=== PATIENT | male | born 1930 | race Caucasian/White ===

== ENCOUNTER 2016-08-15 11:35 | Outpatient (CLI) | payer MEDICARE, OTHER | END 2016-08-15 11:36 | disposition home or self-care (01) | DX: Z01.818 Encounter for other preprocedural examination (principal); N39.0 Urinary tract infection, site not specified; R79.89 Other specified abnormal findings of blood chemistry; Z01.812 Encounter for preprocedural laboratory examination ==

== ENCOUNTER 2016-12-05 07:47 | Day surgery (SDC) | payer MEDICARE, OTHER ==
[2016-12-05] MEDS ORDERED: LACTATED RINGERS 1,000 ML IV ONE (08:04)
[2016-12-05] MEDS ORDERED: TROPICAMIDE 1% OPHTH 2 ML DROPS OPTH ONE (08:10)
[2016-12-05] MEDS ORDERED: CYCLOPENTOLATE 1% OPHTH DROPS 2 ML OPTH ONE ×2 (08:10→08:15)
[2016-12-05] MEDS ORDERED: KETOROLAC 0.45% OPHTH DROPS OPTH ONE ×2 (08:10→08:20)
[2016-12-05] MEDS ORDERED: BSS/LIDOCAINE/EPINEPHRINE 1 ML SYRINGE IO ONE (09:32)
[2016-12-05] MEDS ORDERED: CHONDR SULF/HYALURONATE SYRINGE IO ONE (09:32)
[2016-12-05] MEDS ORDERED: levoFLOXacin 0.5% OPHTH DROPS 5 ML OPTH ONE (09:32)
[2016-12-05] MEDS ORDERED: NEOMYCIN/POLYMYX/DEXAMETH OPHTH OINT OPTH ONE (09:32)
[2016-12-05] MEDS ORDERED: PROPARACAINE 0.5% OPHTH DROPS 15 ML OPTH ONE (09:32)
[2016-12-05] MEDS ORDERED: EPINEPHrine 1 MG/ML AMP IO ONE (09:32)
[2016-12-05] MEDS ORDERED: BRIMONIDINE 0.2% OPHTH DROPS 5 ML OPTH ONE (09:32)
[2016-12-05] MEDS ORDERED: TETRACAINE 0.5% OPHTH DROPS 4 ML LEFTEYE ONE (09:32)
[2016-12-05] MEDS ORDERED: PROPOFOL 200 MG/20 ML VIAL IVP ONE (09:35)
[2016-12-05] MEDS ORDERED: LIDOCAINE-MPF 2% 5 ML VIAL IM ONE (09:35)
[2016-12-05] MEDS ORDERED: MIDAZOLAM 2 MG/2 ML VIAL IVP ONE (09:35)
--- NOTE | 2016-12-05 10:45 | OPERATIVE REPORT ---
DATE OF SURGERY: 12/05/2016 00:00:00 PREOPERATIVE DIAGNOSIS: Visually impairing cataract, left eye. POSTOPERATIVE DIAGNOSIS: Visually impairing cataract, left eye. NAME OF PROCEDURE: Complex cataract extraction with intraocular lens implant of the left eye. SURGEON: Derik Rodgers MD ANESTHESIA: Topical 0.5% tetracaine with monitored sedation and intracameral Shugarcaine given at the beginning of the surgical procedure. COMPLICATIONS: None. DESCRIPTION OF SURGICAL PROCEDURE: The patient was brought into the OR and, after IV and cardiac lead s were placed, the patient was prepped and draped in the usual ophthalmic manner. An adhesive plastic drape was placed over the eye, a slit was made in the drape, and topical anesthetic was placed on th e eye. A lid speculum was used to separate the eyelids and expose the eye. A 15-degree blade was then used to make a self-sealing stab wound 2 o'clock hours to the left of the planned clear corneal inci [place], and intracameral Shugarcaine was administered with minimal aid in dilation. The patient had a h istory of previously being on Flomax. More time was waited to see if there would be a response to the intracameral Shugarcaine and there was not. Viscoelastic was placed in the eye. A crescent blade was used to make the initial vertical component of the self-sealing tunnel, and then a 2.75 keratome was used to complete the incision. The Malyugin ring was then inserted for pupillary expansion and stabi lity. A circular tear capsulorrhexis was performed. The nucleus was hydrodissected, and phacoemulsifi cation of the cataract was performed without complication. The I/A unit was used to remove the cortic al material from the eye. Viscoelastic was then placed in the capsular bag. The intraocular lens was then inserted into the capsular bag and with the haptics left at about the 3 o'clock and 9 o'clock po sitions. There was some residual subincisional cortex, this was extracted with the J cannula and then more Viscoelastic was placed in the eye. The Malyugin ring was released from the iris, and then was extracted from the eye. The I/A unit was used to remove Viscoelastic and BSS was used to fill the ant erior chamber. The wounds were found to be self-sealing and water tight. The lid speculum was removed . Several drops of Quixin were placed on the eye. A drop of brimonidine was placed on the eye. Maxitr ol ointment was placed on the eye. The eye was patched and shielded, and the patient was taken to the recovery room in good condition. JOB #: [id number] EXT JOB #:[id number]
[2016-12-05 11:35] VITALS: BP 119/79
== END 2016-12-05 07:48 | disposition home or self-care (01) ==
LOC: SDS 07:47
PROVIDERS: ATTEND Specialist
PROC: 08RK3JZ Replacement of Left Lens with Synthetic Substitute, Percutaneous Approach (ICD-10-PCS; principal; 2016-12-05 09:00)
DX: H25.12 Age-related nuclear cataract, left eye (principal); I10 Essential (primary) hypertension; I48.91 Unspecified atrial fibrillation; N40.0 Benign prostatic hyperplasia without lower urinary tract symptoms; H21.81 Floppy iris syndrome
CPT/HCPCS: 66982; J7120; V2632

== ENCOUNTER 2017-08-24 09:03 | Emergency (ER) | payer MEDICARE, OTHER ==
--- NOTE | 2017-08-24 09:47 | ED Physician Documentation ---
PD HPI TRUNK INJURY - Stated complaint Stated Complaint: L SIDE RIB PAIN - Chief complaint Chief Complaint: Trauma Ch/Bk - History obtained from History obtained from: Patient - History of Present Illness Location: Left chest Type of injury: Fall (he says tripped on rug and fell to left side.) Timing - onset: Last night Timing - details: Abrupt onset Improved by: Rest Worsened by: Moving, Other (deep breathing) Associated symtptoms: No: Weakness, Numbness Contributing factors: Anticoagulated (though was of COumadin recently for back injection and just resumed it a few days ago.). No: Other injury Where injury occured: Home Similar symptoms before: Has not had sx before Recently seen: Not recently seen Review of Systems Constitutional: denies: Fever, Chills Nose: denies: Rhinorrhea / runny nose, Congestion Throat: reports: Sore throat Respiratory: denies: Cough GI: denies: Abdominal Pain, Nausea, Vomiting Musculoskeletal: reports: Back pain (chronic). denies: Neck pain Neurologic: denies: Altered mental status, Headache, Head injury PD PAST MEDICAL HISTORY - Past Medical History Cardiovascular: Hypertension, High cholesterol, Atrial fibrillation Respiratory: None Neuro: None Endocrine/Autoimmune: None GI: GERD, Colon polyps : Benign prostate hypertrophy HEENT: None Psych: Depression Musculoskeletal: Osteoarthritis, Chronic back pain, Other Derm: None - Past Surgical History Past Surgical History: Yes General: Colonoscopy Ortho: Hip replacement, Arthroscopic surgery HEENT: Tonsil/Adenoidectomy - Present Medications Home Medications: Ambulatory Orders Medication Instructions Recorded Confirmed Amlodipine Besylate [Norvasc] 10 mg PO DAILY 03/10/15 08/24/17 Gluc HCl/Csa/Collagen/Hyalur A 1 each PO DAILY 03/10/15 08/24/17 [Glucosamine Chondroitin Cap] Losartan Potassium 100 mg PO DAILY 03/10/15 08/24/17 Simvastatin 20 mg PO QPM 03/10/15 08/24/17 Warfarin Sodium 5 mg PO DAILY 03/10/15 08/24/17 Oxycodone HCl/Acetaminophen 1 each PO Q6H PRN #20 tablet 08/24/17 [Percocet 5-325 mg Tablet] - Allergies Allergies/Adverse Reactions: Allergies Allergy/AdvReac Type Severity Reaction Status Date / Time cefuroxime axetil * Allergy Severe Hives Verified 02/10/18 09:21 [From Ceftin] - Social History Does the pt smoke?: No Smoking Status: Former smoker Does the pt drink ETOH?: Yes Does the pt have substance abuse?: No - Immunizations Immunizations are current?: Yes - POLST Patient has POLST: Yes PD ED PE NORMAL - Vitals Vital signs reviewed: Yes - General General: Alert and oriented X 3, Well developed/nourished - HEENT HEENT: Atraumatic, Pharynx benign - Neck Neck: Supple, no meningeal sign, No bony TTP, No adenopathy - Cardiac Cardiac: RRR, No murmur - Respiratory Respiratory: No respiratory distress, Clear bilaterally, Other (left chest tenderness without crepitance nor deformity. ) - Abdomen Abdomen: Soft, Non tender - Back Back: No CVA TTP - Derm Derm: Normal color, Warm and dry - Extremities Extremities: No tenderness to palpate, Normal ROM s pain - Neuro Neuro: Alert and oriented X 3, No motor deficit, Normal speech - Psych Psych: Normal mood, Normal affect Results - Vitals Vitals: Oxygen O2 Source Room air - Labs Labs: Laboratory Tests 08/24/17 10:13 Whole Blood INR 1.1 - Rads (name of study) chest CT Radiology: Prelim report reviewed (no fractures nor lung injury) PD MEDICAL DECISION MAKING - ED course Complexity details: reviewed results, considered differential, d/w patient, d/w family () Departure - Departure Disposition: 01 Home, Self Care Clinical Impression: Chest wall contusion Qualifiers: Encounter type: initial encounter Laterality: left Qualified Code(s): S20.212A - Contusion of left front wall of thorax, initial encounter Fall from slip, trip, or stumble Qualifiers: Encounter type: initial encounter Qualified Code(s): W01.0XXA - Fall on same level from slipping, tripping and stumbling without subsequent striking against object, initial encounter Clinical Impression: (Ruled Out): Fracture of rib Condition: Stable Record reviewed to determine appropriate education?: Yes Instructions: ED Contusion Chest Wall Follow-Up: Felix Hernandez MD [Primary Care Provider] - Prescriptions: Oxycodone HCl/Acetaminophen [Percocet 5-325 mg Tablet] 1 each PO Q6H PRN #20 tablet PRN Reason: Pain Comments: There are no signs of internal injury to the lung and no rib fracture seen on CT scan. Presume just bruising to the ribs and chest wall. Continue usual medications. Use Tylenol 500 mg 4 times a day for pain. Add Percocet if needed for worse pain. Recheck if not better over the next week. Discharge Date/Time: 08/24/17 13:04
[2017-08-24] MEDS ORDERED: oxyCOD/ACETAMIN 5 MG/325 MG TABLET PO STA (10:02)
--- NOTE | 2017-08-24 11:59 | CT Preliminary Report ---
Exam: CT CHEST W/O IMPRESSION: 1. No fracture identified. 2. No focal consolidation or pleural effusion. 3. Cardiomegaly with severe coronary artery disease. 4. Cholelithiasis. [facility] SITE ID: [id number]
--- NOTE | 2017-08-24 11:59 | CT Report ---
EXAM: CT CHEST EXAM DATE: 08/24/2017 11:21 AM. CLINICAL HISTORY: Fell last night; left rib/chest pain today. COMPARISONS: None. TECHNIQUE: Routine helical CT imaging was performed through the chest. IV contrast: None. Reconstruct ions: Coronal and sagittal. In accordance with CT protocol optimization, one or more of the following dose reduction techniques w ere utilized for this exam: automated exposure control, adjustment of mA and/or KV based on patient s ize, or use of iterative reconstructive technique. FINDINGS: Lungs/Pleura: No nodules, bronchial thickening, consolidation, or edema. Pulmonary vasculature is nor mal. No pericardial or pleural effusion. No pneumothorax. Mediastinum: Severe coronary artery calcifications. No lymphadenopathy. The heart is enlarged. Bones: No fracture identified. Visualized Abdomen: 2 small calcified stones in the fundus of the gallbladder with no pericholecystic fluid. Other: None. IMPRESSION: 1. No fracture identified. 2. No focal consolidation or pleural effusion. 3. Cardiomegaly with severe coronary artery disease. 4. Cholelithiasis. [facility] Referring Provider Line: [phone] SITE ID: [id number]
[2017-08-24] MEDS ORDERED: WARFARIN 5 MG TABLET PO STA (12:32)
[2017-08-24 12:44] VITALS: BP 134/86
== END 2017-08-24 13:04 | disposition home or self-care (01) ==
LOC: ED 09:03
DX: S20.212A Contusion of left front wall of thorax, initial encounter (principal); W01.0XXA Fall on same level from slipping, tripping and stumbling without subsequent striking against object, initial encounter; Y92.019 Unspecified place in single-family (private) house as the place of occurrence of the external cause; I48.91 Unspecified atrial fibrillation; Z79.01 Long term (current) use of anticoagulants; I10 Essential (primary) hypertension; E78.00 Pure hypercholesterolemia, unspecified; K21.9 Gastro-esophageal reflux disease without esophagitis; N40.0 Benign prostatic hyperplasia without lower urinary tract symptoms; M19.90 Unspecified osteoarthritis, unspecified site; Z86.010 Personal history of colon polyps; Z87.891 Personal history of nicotine dependence
CPT/HCPCS: 71250; 85610; 93005; 99283; 99284; A9270

== ENCOUNTER 2017-10-14 08:30 | Outpatient (CLI) | payer MEDICARE, OTHER ==
[2017-10-14 12:31] LABS: BASOPHILS % (AUTO) 0.5 %; EOSINOPHILS # (AUTO) 0.1 10^3/uL (0.0-0.7); EOSINOPHILS % (AUTO) 2.1 %; HGB - HEMOGLOBIN 14.6 g/dL (14.0-18.0); LYMPHOCYTES # (AUTO) 0.9 10^3/uL (1.5-3.5); LYMPHOCYTES % (AUTO) 19.5 %; MEAN CORPUSCULAR HEMOGLOBIN 31.2 pg (27.0-31.0); MEAN CORPUSCULAR HGB CONC 33.1 g/dL (32.0-36.0); MEAN CORPUSCULAR VOLUME 94.2 fL (80.0-94.0); MEAN PLATELET VOLUME 7.3 fL (7.4-11.4); MONOCYTES # (AUTO) 0.6 10^3/uL (0.0-1.0); NEUTROPHILS # (AUTO) 3.1 10^3/uL (1.5-6.6); NEUTROPHILS % (AUTO) 65.9 %; PLT - PLATELET COUNT 258 10^3/uL (130-450); RED BLOOD COUNT 4.68 10^6/uL (4.70-6.10); RED CELL DISTRIBUTION WIDTH 14.7 % (12.0-15.0); WHITE BLOOD COUNT 4.7 x10^3/uL (4.8-10.8)
[2017-10-14 12:50] LABS: ALBUMIN/GLOBULIN RATIO 1.6 (1.0-2.2); ALKALINE PHOSPHATASE 73 IU/L (42-121); ALT ALANINE AMINOTRANSFERASE 25 IU/L (10-60); AST ASPARTATE AMINOTRANSFERASE 28 IU/L (10-42); BILIRUBIN,TOTAL 0.8 mg/dL (0.2-1.0); BUN - BLOOD UREA NITROGEN 28 mg/dL (6-20); CALCIUM 9.1 mg/dL (8.5-10.3); CARBON DIOXIDE - CO2 26 mmol/L (21-32); CHLORIDE 106 mmol/L (101-111); CHOL/HDL RATIO 3.4 (<5.0); CHOLESTEROL 153 mg/dL; GFR - MDRD 71 (>89); GLUCOSE 103 mg/dL (70-100); HDL CHOLESTEROL 45 mg/dL; LDL CHOLESTEROL,CALCULATED 92 mg/dL; SODIUM 138 mmol/L (135-145); TOTAL PROTEIN 6.5 g/dL (6.7-8.2); VLDL CHOLESTEROL 16 mg/dL
== END 2017-10-14 08:31 | disposition home or self-care (01) ==
LOC: LAB.WCP 08:30
PROVIDERS: ATTEND Family Medicine
DX: I10 Essential (primary) hypertension (principal); I48.91 Unspecified atrial fibrillation; E78.5 Hyperlipidemia, unspecified
CPT/HCPCS: 36415; 80053; 80061; 84443; 85025; G0103; 83721; 84153

== ENCOUNTER 2018-07-14 14:50 | Outpatient (CLI) | payer MEDICARE, OTHER ==
[2018-07-14 18:55] LABS: BASOPHILS % (AUTO) 0.5 %; EOSINOPHILS # (AUTO) 0.2 10^3/uL (0.0-0.7); EOSINOPHILS % (AUTO) 2.4 %; HGB - HEMOGLOBIN 13.2 g/dL (14.0-18.0); LYMPHOCYTES # (AUTO) 0.7 10^3/uL (1.5-3.5); LYMPHOCYTES % (AUTO) 9.6 %; MEAN CORPUSCULAR HEMOGLOBIN 30.8 pg (27.0-31.0); MEAN CORPUSCULAR HGB CONC 32.5 g/dL (32.0-36.0); MEAN CORPUSCULAR VOLUME 94.6 fL (80.0-94.0); MEAN PLATELET VOLUME 7.1 fL (7.4-11.4); MONOCYTES # (AUTO) 0.7 10^3/uL (0.0-1.0); MONOCYTES % (AUTO) 9.6 %; NEUTROPHILS # (AUTO) 5.6 10^3/uL (1.5-6.6); NEUTROPHILS % (AUTO) 77.9 %; PLT - PLATELET COUNT 373 10^3/uL (130-450); RED BLOOD COUNT 4.29 10^6/uL (4.70-6.10); RED CELL DISTRIBUTION WIDTH 15.1 % (12.0-15.0); WHITE BLOOD COUNT 7.2 x10^3/uL (4.8-10.8)
[2018-07-14 19:06] LABS: ALBUMIN 3.3 g/dL (3.2-5.5); ALBUMIN/GLOBULIN RATIO 1.1 (1.0-2.2); ALKALINE PHOSPHATASE 112 IU/L (42-121); ALT ALANINE AMINOTRANSFERASE 15 IU/L (10-60); AST ASPARTATE AMINOTRANSFERASE 23 IU/L (10-42); BILIRUBIN,TOTAL 0.3 mg/dL (0.2-1.0); BUN - BLOOD UREA NITROGEN 26 mg/dL (6-20); CALCIUM 9.2 mg/dL (8.5-10.3); CARBON DIOXIDE - CO2 26 mmol/L (21-32); CHLORIDE 106 mmol/L (101-111); CREATININE 1.4 mg/dL (0.6-1.2); GFR - MDRD 48 (>89); GLUCOSE 124 mg/dL (70-100); PREALBUMIN 15 mg/dL (18-45); SODIUM 140 mmol/L (135-145); TOTAL PROTEIN 6.4 g/dL (6.7-8.2)
== END 2018-07-14 23:59 | disposition home or self-care (01) ==
LOC: LAB.WCP 14:50
PROVIDERS: ATTEND Family Medicine
DX: I48.91 Unspecified atrial fibrillation (principal); I10 Essential (primary) hypertension; I95.9 Hypotension, unspecified; R63.0 Anorexia
CPT/HCPCS: 36415; 80053; 84134; 84443; 85025

== ENCOUNTER 2018-08-29 15:18 | Outpatient (CLI) | payer MEDICARE, OTHER ==
[2018-08-29 19:13] LABS: BASOPHILS % (AUTO) 0.6 %; EOSINOPHILS # (AUTO) 0.1 10^3/uL (0.0-0.7); EOSINOPHILS % (AUTO) 2.6 %; HGB - HEMOGLOBIN 13.8 g/dL (14.0-18.0); LYMPHOCYTES # (AUTO) 0.6 10^3/uL (1.5-3.5); LYMPHOCYTES % (AUTO) 11.5 %; MEAN CORPUSCULAR HEMOGLOBIN 30.6 pg (27.0-31.0); MEAN CORPUSCULAR HGB CONC 32.4 g/dL (32.0-36.0); MEAN CORPUSCULAR VOLUME 94.5 fL (80.0-94.0); MEAN PLATELET VOLUME 7.4 fL (7.4-11.4); MONOCYTES # (AUTO) 0.6 10^3/uL (0.0-1.0); MONOCYTES % (AUTO) 11.5 %; NEUTROPHILS # (AUTO) 3.7 10^3/uL (1.5-6.6); NEUTROPHILS % (AUTO) 73.8 %; PLT - PLATELET COUNT 240 10^3/uL (130-450); RED CELL DISTRIBUTION WIDTH 17.1 % (12.0-15.0); WHITE BLOOD COUNT 5.1 x10^3/uL (4.8-10.8)
[2018-08-29 20:14] LABS: THYROID STIMULATING HORMONE 1.33 uIU/mL (0.34-5.60)
[2018-08-29 20:15] LABS: ALBUMIN 3.6 g/dL (3.2-5.5); ALBUMIN/GLOBULIN RATIO 1.2 (1.0-2.2); ALKALINE PHOSPHATASE 68 IU/L (42-121); ALT ALANINE AMINOTRANSFERASE 17 IU/L (10-60); AST ASPARTATE AMINOTRANSFERASE 24 IU/L (10-42); BUN - BLOOD UREA NITROGEN 29 mg/dL (6-20); CALCIUM 9.2 mg/dL (8.5-10.3); CARBON DIOXIDE - CO2 26 mmol/L (21-32); CHLORIDE 105 mmol/L (101-111); CREATININE 0.9 mg/dL (0.6-1.2); GFR - MDRD 80 (>89); GLUCOSE 94 mg/dL (70-100); SODIUM 140 mmol/L (135-145); TOTAL PROTEIN 6.6 g/dL (6.7-8.2)
== END 2018-08-29 15:19 | disposition home or self-care (01) ==
LOC: LAB.WCP 15:18
PROVIDERS: ATTEND Family Medicine
DX: R63.0 Anorexia (principal); R27.0 Ataxia, unspecified; R73.9 Hyperglycemia, unspecified; R41.3 Other amnesia
CPT/HCPCS: 36415; 80053; 82607; 83921; 84443; 85025

== ENCOUNTER 2018-09-08 12:45 | Outpatient (CLI) | payer MEDICARE, OTHER | END 2018-09-08 12:46 | disposition home or self-care (01) | LOC: DI 12:45 | PROVIDERS: ATTEND Family Medicine | DX: I48.91 Unspecified atrial fibrillation (principal); I51.7 Cardiomegaly | CPT/HCPCS: 93306 ==

== ENCOUNTER 2018-09-15 11:31 | Outpatient (CLI) | payer MEDICARE, OTHER | END 2018-09-15 11:32 | disposition critical access hospital (66) | LOC: EMS 11:31 | PROVIDERS: ATTEND Surgery | DX: M25.561 Pain in right knee (principal); M79.671 Pain in right foot; W19.XXXA Unspecified fall, initial encounter; W23.0XXA Caught, crushed, jammed, or pinched between moving objects, initial encounter; Y92.008 Other place in unspecified non-institutional (private) residence as the place of occurrence of the external cause | CPT/HCPCS: A0425; A0429 ==

== ENCOUNTER 2018-09-15 11:42 | Emergency (ER) | payer MEDICARE, OTHER ==
--- NOTE | 2018-09-15 13:52 | XRAY Report ---
Reason: fall Procedure Date: 09/15/2018 Accession Number: [id number] / [id number] Procedure: XR - Knee 3 View BILAT CPT Code: FULL RESULT: EXAMS: 1. Right Knee Radiography 2. Left Knee Radiography EXAM DATE:09/15/2018 12:37 PM. CLINICAL HISTORY:Fall. COMPARISON: None. TECHNIQUE: 3 views each. FINDINGS: Bones: No fractures or acute bone lesions. Evidence of diffuse osteopenia. Joints: Status post bilateral knee arthroplasties with expected appearance and alignment. No abnormal. Hardware lucency. Soft Tissues: Bilateral effusions, right larger than left. Extensive vascular calcifications are demonstrated. IMPRESSION: 1. No acute osseous abnormality. 2. Osteopenia. 3. Status post bilateral knee arthroplasties, with expected appearance. 4. Bilateral effusions, right larger than left. [facility]
--- NOTE | 2018-09-15 13:54 | XRAY Report ---
Reason: injury Procedure Date: 09/15/2018 Accession Number: [id number] / [id number] Procedure: XR - Foot 3 View RT CPT Code: FULL RESULT: EXAM: RIGHT FOOT RADIOGRAPHY EXAM DATE: 09/15/2018 01:07 PM. CLINICAL HISTORY: Injury. COMPARISON: None. TECHNIQUE: 3 views. FINDINGS: Bones: Diffuse osteopenia. No definite fractures or acute bone lesions. Small plantar calcaneal spur. Joints: Degenerative disease, greatest at tarsometatarsal joints and less so at the first MTP joint. No subluxations. Soft Tissues: Substantial vascular calcifications.. No soft tissue swelling. IMPRESSION: 1. No definite acute abnormality. 2. Osteopenia. 3. Degenerative disease, as above. [facility]
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
[2018-09-15] MEDS ORDERED: HYDROcod/ACETAM 5/325 MG TABLET PO STA (14:26)
[2018-09-15] MEDS ORDERED: KETOROLAC 30 MG/ML VIAL IM STA (14:26)
[2018-09-15] MEDS ORDERED: DEXAMETHASONE 10 MG/ML VIAL PO STA (14:26)
[2018-09-15] MEDS ORDERED: CHERRY SYRUP 10 ML UDC PO ONE (14:52)
[2018-09-15 15:21] VITALS: BP 155/90
== END 2018-09-15 15:40 | disposition home or self-care (01) ==
LOC: EDUNIT# → ED 11:42
DX: S90.31XA Contusion of right foot, initial encounter (principal); M25.061 Hemarthrosis, right knee; M25.462 Effusion, left knee; M25.461 Effusion, right knee; W01.0XXA Fall on same level from slipping, tripping and stumbling without subsequent striking against object, initial encounter; Y92.008 Other place in unspecified non-institutional (private) residence as the place of occurrence of the external cause; Z96.653 Presence of artificial knee joint, bilateral; I10 Essential (primary) hypertension; I48.91 Unspecified atrial fibrillation; Z79.01 Long term (current) use of anticoagulants; Z87.891 Personal history of nicotine dependence
CPT/HCPCS: 73562; 73630; 96372; 99283; A9270; 85610

== ENCOUNTER 2018-09-19 12:59 | Outpatient (CLI) | payer MEDICARE, OTHER | END 2018-09-19 13:00 | disposition home or self-care (01) | LOC: LAB 12:59 | PROVIDERS: ATTEND Family Medicine | DX: Z79.01 Long term (current) use of anticoagulants (principal); I48.91 Unspecified atrial fibrillation | CPT/HCPCS: 36415; 85610 ==

== ENCOUNTER 2018-09-20 14:02 | Outpatient (CLI) | payer MEDICARE, OTHER ==
[2018-09-20 15:44] LABS: INR 8.8 (0.8-1.2)
== END 2018-09-20 23:59 ==
LOC: LAB.R 14:02
PROVIDERS: ATTEND Nurse Practitioner
DX: Z79.01 Long term (current) use of anticoagulants (principal)
CPT/HCPCS: 85610

== ENCOUNTER 2018-09-20 14:40 | Outpatient (CLI) | payer MEDICARE, OTHER | END 2018-09-20 14:41 | disposition home or self-care (01) | LOC: LAB 14:40 | PROVIDERS: ATTEND Nurse Practitioner | DX: Z79.01 Long term (current) use of anticoagulants (principal) ==

== ENCOUNTER 2018-09-21 14:50 | Outpatient (CLI) | payer MEDICARE, OTHER ==
[2018-09-21 15:27] LABS: INR 4.2 (0.8-1.2); PT - PROTHROMBIN TIME 46.7 secs (9.9-12.6)
== END 2018-09-21 14:51 | disposition home or self-care (01) ==
LOC: LAB 14:50
PROVIDERS: ATTEND Nurse Practitioner
DX: Z79.01 Long term (current) use of anticoagulants (principal)
CPT/HCPCS: 36415; 85610

== ENCOUNTER 2018-09-22 08:00 | Outpatient (CLI) | payer MEDICARE, OTHER | END 2018-09-22 23:59 | disposition home or self-care (01) | LOC: LAB.WCP 08:00 | PROVIDERS: ATTEND Physician Assistant Medical | DX: Z79.01 Long term (current) use of anticoagulants (principal); Z51.81 Encounter for therapeutic drug level monitoring ==

== ENCOUNTER 2018-09-25 08:00 | Outpatient (CLI) | payer MEDICARE, OTHER | END 2018-09-25 23:59 | disposition home or self-care (01) | LOC: LAB.WCP 08:00 | PROVIDERS: ATTEND Family Medicine | DX: I48.91 Unspecified atrial fibrillation (principal); Z79.01 Long term (current) use of anticoagulants ==

== ENCOUNTER 2018-10-02 08:00 | Outpatient (CLI) | payer MEDICARE, OTHER | END 2018-10-02 23:59 | disposition home or self-care (01) | LOC: LAB.WCP 08:00 | PROVIDERS: ATTEND Family Medicine | DX: I48.91 Unspecified atrial fibrillation (principal); Z79.01 Long term (current) use of anticoagulants | CPT/HCPCS: 81025 ==

== ENCOUNTER 2018-10-09 08:00 | Outpatient (CLI) | payer MEDICARE, OTHER | END 2018-10-09 23:59 | disposition home or self-care (01) | LOC: LAB.WCP 08:00 | PROVIDERS: ATTEND Family Medicine | DX: I48.91 Unspecified atrial fibrillation (principal); Z79.01 Long term (current) use of anticoagulants ==

== ENCOUNTER 2018-10-16 08:00 | Outpatient (CLI) | payer MEDICARE, OTHER | END 2018-10-16 23:59 | disposition home or self-care (01) | LOC: LAB.WCP 08:00 | PROVIDERS: ATTEND Family Medicine | DX: I48.91 Unspecified atrial fibrillation (principal); Z79.01 Long term (current) use of anticoagulants | CPT/HCPCS: 81025 ==

== ENCOUNTER 2018-10-23 08:00 | Outpatient (CLI) | payer MEDICARE, OTHER | END 2018-10-23 23:59 | disposition home or self-care (01) | LOC: LAB.WCP 08:00 | PROVIDERS: ATTEND Family Medicine | DX: I48.91 Unspecified atrial fibrillation (principal); Z79.01 Long term (current) use of anticoagulants ==

== ENCOUNTER 2018-10-30 08:00 | Outpatient (CLI) | payer MEDICARE, OTHER | END 2018-10-30 23:59 | disposition home or self-care (01) | LOC: LAB.WCP 08:00 | PROVIDERS: ATTEND Family Medicine | DX: I48.91 Unspecified atrial fibrillation (principal); Z79.01 Long term (current) use of anticoagulants ==

== ENCOUNTER 2018-11-13 08:00 | Outpatient (CLI) | payer MEDICARE, OTHER | END 2018-11-13 08:01 | disposition home or self-care (01) | LOC: LAB.WCP 08:00 | PROVIDERS: ATTEND Family Medicine | DX: I48.91 Unspecified atrial fibrillation (principal); Z79.01 Long term (current) use of anticoagulants ==

== ENCOUNTER 2018-12-12 08:00 | Outpatient (CLI) | payer MEDICARE, OTHER | END 2018-12-12 23:59 | disposition home or self-care (01) | LOC: LAB.WCP 08:00 | PROVIDERS: ATTEND Family Medicine | DX: I48.91 Unspecified atrial fibrillation (principal); Z79.01 Long term (current) use of anticoagulants ==

== ENCOUNTER 2019-04-02 18:43 | Outpatient (CLI) | payer MEDICARE, OTHER ==
[2019-04-02 19:09] LABS: BASOPHILS % (AUTO) 0.3 %; EOSINOPHILS # (AUTO) 0.1 10^3/uL (0.0-0.7); EOSINOPHILS % (AUTO) 1.8 %; HGB - HEMOGLOBIN 15.6 g/dL (14.0-18.0); LYMPHOCYTES # (AUTO) 0.9 10^3/uL (1.5-3.5); LYMPHOCYTES % (AUTO) 14.6 %; MEAN CORPUSCULAR HEMOGLOBIN 31.4 pg (27.0-31.0); MEAN CORPUSCULAR HGB CONC 32.3 g/dL (32.0-36.0); MEAN CORPUSCULAR VOLUME 97.2 fL (80.0-94.0); MONOCYTES # (AUTO) 0.7 10^3/uL (0.0-1.0); MONOCYTES % (AUTO) 11.9 %; NEUTROPHILS # (AUTO) 4.2 10^3/uL (1.5-6.6); NEUTROPHILS % (AUTO) 71.1 %; PLT - PLATELET COUNT 232 10^3/uL (130-450); RED BLOOD COUNT 4.97 10^6/uL (4.70-6.10); RED CELL DISTRIBUTION WIDTH 14.1 % (12.0-15.0)
[2019-04-02 19:10] LABS: BILIRUBIN,URINE NEGATIVE (NEGATIVE); GLUCOSE, URINE (UA) NEGATIVE (NEGATIVE); KETONES,URINE (UA) NEGATIVE (NEGATIVE); LEUKOCYTE ESTERASE, URINE NEGATIVE (NEGATIVE); NITRITE,URINE NEGATIVE (NEGATIVE); OCCULT BLOOD,URINE NEGATIVE (NEGATIVE); PROTEIN,URINE NEGATIVE (NEGATIVE); UROBILINOGEN,URINE 0.2 (NORMAL) E.U./dL (NORMAL)
[2019-04-02 19:20] LABS: CLARITY,URINE CLEAR (CLEAR)
[2019-04-02 19:40] LABS: ALBUMIN 4.3 g/dL (3.2-5.5); ALBUMIN/GLOBULIN RATIO 1.5 (1.0-2.2); BILIRUBIN,TOTAL 0.8 mg/dL (0.2-1.0); CALCIUM 9.9 mg/dL (8.5-10.3); CREATININE 1.1 mg/dL (0.6-1.2); TOTAL PROTEIN 7.2 g/dL (6.7-8.2)
== END 2019-04-02 18:44 | disposition home or self-care (01) ==
LOC: LAB 18:43
PROVIDERS: ATTEND Family Medicine
DX: I10 Essential (primary) hypertension (principal); R35.0 Frequency of micturition; K59.00 Constipation, unspecified
CPT/HCPCS: 36415; 80053; 81001; 81003; 85025; 87086

== ENCOUNTER 2019-07-10 10:15 | Emergency (ER) | payer MEDICARE, OTHER ==
--- NOTE | 2019-07-10 12:26 | ED Physician Documentation ---
History of Present Illness - Stated complaint Stated Complaint: GLF - Chief complaint Chief Complaint: Ext Problem - History obtained from History obtained from: Patient, Family - History of Present Illness Timing: How many days ago (2) Pain level max: 6 Pain level now: 4 - Additonal information Additional information: 88-year-old male states that he was taking a cast iron braun off of the stove 2 days ago when he tripped fell and landed on his buttocks. He states he has bilateral hip pain as well as left rib pain. Worse with movement and better with rest. He used to be on warfarin, but now takes Eliquis. Review of Systems Constitutional: denies: Fever, Chills GI: denies: Vomiting, Diarrhea Skin: denies: Rash Musculoskeletal: denies: Neck pain, Back pain Neurologic: denies: Headache PD PAST MEDICAL HISTORY - Past Medical History Cardiovascular: Hypertension, High cholesterol, Atrial fibrillation Respiratory: None Endocrine/Autoimmune: None GI: GERD, Colon polyps : Benign prostate hypertrophy HEENT: None Psych: Depression Musculoskeletal: Osteoarthritis, Chronic back pain, Other Derm: None - Past Surgical History Past Surgical History: Yes General: Colonoscopy Ortho: Hip replacement, Arthroscopic surgery HEENT: Tonsil/Adenoidectomy - Present Medications Home Medications: Ambulatory Orders Medication Instructions Recorded Confirmed Glucosam/Chond/Collagen/Hyalur 1 each PO DAILY 03/10/15 08/24/17 [Glucosamine Chondroitin Cap] Losartan Potassium 25 mg PO DAILY 03/10/15 09/15/18 Simvastatin 20 mg PO QPM 03/10/15 09/15/18 Warfarin Sodium 3 mg PO DAILY 03/10/15 09/15/18 Finasteride 1 tab ORAL DAILY 09/15/18 09/15/18 Hydrocodone/Acetaminophen [[place] 1 each PO Q6H PRN #20 tablet 09/15/18 5-325 Tablet] Tamsulosin HCl [Flomax] 1 cap ORAL BID 09/15/18 09/15/18 dexAMETHasone [Decadron] 4 mg PO DAILY #5 tablet 09/15/18 - Allergies Allergies/Adverse Reactions: Allergies Allergy/AdvReac Type Severity Reaction Status Date / Time cefuroxime axetil * Allergy Severe Hives Verified 09/15/18 11:58 [From Ceftin] acetaminophen [From Vicodin] Allergy Rash Verified 09/16/18 09:05 hydrocodone [From Vicodin] Allergy Rash Verified 09/16/18 09:05 - Social History Does the pt smoke?: No Smoking Status: Former smoker Does the pt drink ETOH?: Yes Does the pt have substance abuse?: No - Immunizations Immunizations are current?: Yes - POLST Patient has POLST: Yes PD ED PE NORMAL - Vitals Vital signs reviewed: Yes - General General: Alert and oriented X 3, No acute distress, Well developed/nourished - HEENT HEENT: Moist mucous membranes - Neck Neck: Supple, no meningeal sign - Cardiac Cardiac: RRR, Strong equal pulses - Respiratory Respiratory: No respiratory distress, Clear bilaterally - Abdomen Abdomen: Soft, Non tender, Non distended - Back Back: No spinal TTP - Derm Derm: Warm and dry - Extremities Extremities: No deformity, No edema - Neuro Neuro: Alert and oriented X 3 - Psych Psych: Normal mood, Normal affect - Free text exam Free text exam: Tender to palpation over the bilateral hips. Full range of motion with minimal pain. Also tender to palpation over the left anterior ribs, approximately 6 through 9. No crepitus. No ecchymosis. Results - Vitals Vitals: Vital Signs - 24 hr 07/10/19 07/10/19 10:20 14:42 Temperature 36.4 C L 36.1 C L Heart Rate 69 100 Respiratory 16 17 Rate Blood Pressure 117/53 L 180/105 H O2 Saturation 99 98 Oxygen O2 Source Room air - Labs Labs: Laboratory Tests 07/10/19 12:15 Whole Blood INR 1.3 H - Rads (name of study) B hip xray Radiology: Prelim report reviewed, EMP read contemporaneously, See rad report ( No fracture or dislocation. Left total hip prosthesis. 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 Mid and lower lumbar degenerative disk disease, unchanged. Iliac and femoral artery atherosclerosis, more extensive than on the prior examination. ) L rib xray Radiology: Prelim report reviewed, EMP read contemporaneously, See rad report (No acute abnormality. ) PD MEDICAL DECISION MAKING - ED course Complexity details: reviewed results, re-evaluated patient, considered differential, d/w patient, d/w family ED course: Patient with pain after a ground-level fall, ambulating well at home. No acute findings on x-ray. No evidence of fractures. Pain well controlled. Ambulating well in the emergency department as well. Patient and family counseled regarding signs and symptoms for which I believe and urgent re-evaluation would be necessary. Patient with good understanding of and agreement to plan and is comfortable going home at this time This document was made in part using voice recognition software. While efforts are made to proofread this document, sound alike and grammatical errors may occur. Departure - Departure Disposition: Home, Self Care Clinical Impression: Chest wall contusion Qualifiers: Encounter type: initial encounter Laterality: left Qualified Code(s): S20.212A - Contusion of left front wall of thorax, initial encounter Fall from slip, trip, or stumble Qualifiers: Encounter type: initial encounter Qualified Code(s): W01.0XXA - Fall on same level from slipping, tripping and stumbling without subsequent striking against object, initial encounter Hip pain Qualifiers: Laterality: unspecified laterality Qualified Code(s): M25.559 - Pain in unspecified hip Condition: Good Instructions: ED Contusion Lower Ext, ED Contusion Chest Wall Follow-Up: Kush Martinez MD [Primary Care Provider] - Within 1 week Comments: Your x-rays do not show any acute fractures today. Return if you worsen. Follow-up with your doctor for further care. Discharge Date/Time: 07/10/19 14:43
--- NOTE | 2019-07-10 13:43 | XRAY Report ---
Reason: fall, L rib pain Procedure Date: 07/10/2019 Accession Number: [id number] / [id number] Procedure: XR - Ribs w/PA Chest LT CPT Code: Final Report FULL RESULT: EXAM: LEFT RIB RADIOGRAPHY 3 VIEWS EXAM DATE: 07/10/2019. CLINICAL HISTORY: Fell. Left rib pain. COMPARISON: PA and lateral chest done 11/20/2015. TECHNIQUE: PA view of the chest and anterior and posterior oblique views of the left ribs. Metal marker placed adjacent to the lower anterior left ribs. FINDINGS: Bones: No acute fracture. Healed fractures of lower anterior left seventh, eighth and ninth ribs. Lungs: Normal vasculature. The lungs are clear. No pleural fluid or pneumothorax. Mediastinum: Normal cardiac and mediastinal contours. Atherosclerosis of the aorta. IMPRESSION: No acute abnormality. [facility]
--- NOTE | 2019-07-10 13:46 | XRAY Report ---
Reason: fall, B hip pain Procedure Date: 07/10/2019 Accession Number: [id number] / [id number] Procedure: XR - Hips 2V BILAT CPT Code: Final Report FULL RESULT: EXAM: BILATERAL HIP RADIOGRAPHY 3 VIEWS EXAM DATE: 07/10/2019. CLINICAL HISTORY: Fell. Bilateral hip pain. COMPARISON: 12/07/2010. TECHNIQUE: AP view of the pelvis, AP view of the left hip, and frog leg view of each hip.. FINDINGS: Bones: Normal. No fractures or bone lesion. Joints: No dislocation. Left total hip prosthesis placed since prior examination. 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 L3-L4 and L4-L5 disk narrowing appears unchanged. Soft Tissues: Iliac and femoral artery atherosclerosis. IMPRESSION: No fracture or dislocation. Left total hip prosthesis. 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 Mid and lower lumbar degenerative disk disease, unchanged. Iliac and femoral artery atherosclerosis, more extensive than on the prior examination. [facility]
[2019-07-10 14:43] VITALS: BP 180/105
== END 2019-07-10 14:43 | disposition home or self-care (01) ==
LOC: ED 10:15
DX: S20.212A Contusion of left front wall of thorax, initial encounter (principal); W01.0XXA Fall on same level from slipping, tripping and stumbling without subsequent striking against object, initial encounter; Y93.E9 Activity, other interior property and clothing maintenance; Y92.000 Kitchen of unspecified non-institutional (private) residence as the place of occurrence of the external cause; I10 Essential (primary) hypertension; Z87.891 Personal history of nicotine dependence
CPT/HCPCS: 73521; 85610; 99284

== ENCOUNTER 2019-07-13 07:45 | Emergency (ER) | payer MEDICARE, OTHER ==
--- NOTE | 2019-07-13 07:58 | ED Physician Documentation ---
PD HPI MALE - Stated complaint Stated Complaint: UNABLE TO URINATE/DIARRHEA - History obtained from History obtained from: Patient - History of Present Illness Timing - onset: Yesterday Timing - duration: Days (1) Timing - details: Abrupt onset Associated symptoms: Urinary frequency, Unable to urinate, Abdominal pain. No: Dysuria, Hematuria Similar symptoms before: Has not had sx before Recently seen: Other (Had a cystoscopy 2 weeks ago) - Additional information Additional information: This is an 88-year-old man who presents with complaints that he did not have a bowel movement yesterday and then around 3 PM he was unable to urinate. He feels the urge and has just a little leak of urine. He is never had this happen before. He was experiencing urinary frequency prior to the onset yesterday and 2 weeks ago he had a cystoscopy done but says that "they did not find anything that bad". He believes he had to have this done because he was in the alf related to a knee problem they got his medications all messed up and since that time he been having difficulty urinating. He denies any history of significant prostate problems. Denies dysuria. He denies any fever or back pain but does complain of some suprapubic pressure. He lives with his and has been back in his home for the past 11 months. Review of Systems Constitutional: denies: Fever GI: reports: Abdominal Pain, Constipation. denies: Nausea, Vomiting : reports: Frequency, Hesitancy, Unable to Void. denies: Dysuria Musculoskeletal: denies: Back pain Neurologic: reports: Other (Patient ambulates with a cane.) Endocrine: reports: Easy bruising / bleeding (He is on Eliquis for A. fib) PD PAST MEDICAL HISTORY - Past Medical History Cardiovascular: Hypertension, High cholesterol, Atrial fibrillation Respiratory: None Endocrine/Autoimmune: None GI: GERD, Colon polyps : Benign prostate hypertrophy HEENT: None Psych: Depression Musculoskeletal: Osteoarthritis, Chronic back pain, Other Derm: None - Past Surgical History Past Surgical History: Yes General: Colonoscopy Ortho: Hip replacement, Arthroscopic surgery HEENT: Tonsil/Adenoidectomy - Present Medications Home Medications: Ambulatory Orders Medication Instructions Recorded Confirmed Simvastatin 20 mg PO QPM 03/10/15 07/13/19 Finasteride 1 tab ORAL DAILY 09/15/18 07/13/19 Tamsulosin HCl [Flomax] 1 cap ORAL DAILY 09/15/18 07/13/19 Apixaban [Eliquis] 5 mg PO BID 07/13/19 07/13/19 Cholecalciferol [Vitamin D3] 0 cap PO DAILY 07/13/19 07/13/19 Docusate Sodium 250Mg Capsule 250 mg PO ONCE 07/13/19 07/13/19 [Colace 250Mg Capsule] Polyethylene Glycol 3350 [Miralax] 17 gm PO DAILY PRN #1 bottle 07/13/19 Vitamin B Complex 1 each PO DAILY 07/13/19 07/13/19 - Allergies Allergies/Adverse Reactions: Allergies Allergy/AdvReac Type Severity Reaction Status Date / Time cefuroxime axetil * Allergy Severe Hives Verified 07/13/19 08:10 [From Ceftin] acetaminophen [From Vicodin] Allergy Rash Verified 07/13/19 08:10 hydrocodone [From Vicodin] Allergy Rash Verified 07/13/19 08:10 - Social History Does the pt smoke?: No Smoking Status: Former smoker Does the pt drink ETOH?: Yes Does the pt have substance abuse?: No - Immunizations Immunizations are current?: Yes - POLST Patient has POLST: Yes PD ED PE NORMAL - Vitals Vital signs reviewed: Yes - General General: Alert and oriented X 3, No acute distress, Well developed/nourished - HEENT HEENT: PERRL - Cardiac Cardiac: No murmur. No: RRR (Irregular rhythm) - Respiratory Respiratory: No respiratory distress, Clear bilaterally - Abdomen Abdomen: Normal bowel sounds, Soft, Other (Bladder is enlarged and palpable below the umbilicus. There is tenderness) - Neuro Neuro: Alert and oriented X 3, Normal speech - Psych Psych: Normal mood, Normal affect Results - Vitals Vitals: Vital Signs - 24 hr 07/13/19 07/13/19 09:55 10:30 Heart Rate 96 83 Respiratory 14 16 Rate Blood Pressure 157/98 H 144/90 H O2 Saturation 98 99 Oxygen O2 Source Room air - Labs Labs: Laboratory Tests 07/13/19 07/13/19 07/13/19 08:28 09:07 09:07 WBC 6.6 RBC 4.34 L Hgb 13.5 L Hct 42.0 MCV 96.8 H MCH 31.1 H MCHC 32.1 RDW 14.3 Plt Count 217 MPV 9.0 Neut # (Auto) 5.4 Lymph # (Auto) 0.5 L Garrard # (Auto) 0.7 Eos # (Auto) 0.1 Baso # (Auto) 0.0 Absolute Nucleated RBC 0.00 Nucleated RBC % 0.0 Sodium 142 Potassium 4.1 Chloride 108 Carbon Dioxide 27 Anion Gap 7.0 BUN 31 H Creatinine 0.9 Estimated GFR (MDRD) 80 L Glucose 109 H Calcium 9.5 Urine Color DARK YELLOW Urine Clarity CLEAR Urine pH 5.5 Ur Specific Fallon >=1.030 H Urine Protein NEGATIVE Urine Glucose (UA) NEGATIVE Urine Ketones NEGATIVE Urine Occult Blood MODERATE H Urine Nitrite NEGATIVE Urine Bilirubin NEGATIVE Urine Urobilinogen 0.2 (NORMAL) Ur Leukocyte Esterase NEGATIVE Urine RBC 0-5 Urine WBC 0-3 Ur Squamous Epith Cells RARE Squamous Urine Bacteria Rare Ur Microscopic Review INDICATED Urine Culture Comments NOT INDICATED PD MEDICAL DECISION MAKING - ED course ED course: BUN and creatinine are normal. His white blood cell count is normal. His bladder scan was only 200 cc and straight cath urine did not show any evidence of infection. There is some blood in the urine but he had a recent cystoscopy as well. No evidence of acute urinary retention. He was concerned about being constipated and is flatplate of the abdomen does show that there is quite a bit of stool. Given the bladder scanner results and imaging what I felt in the abdomen is most likely stool. Will prescribe MiraLAX to see if we can get that moving. His urine is quite concentrated and of encouraged him to drink plenty of water. Follow-up with his primary care provider for reevaluation if not improving. Late entry: Patient called later in the afternoon to complain that he had not been given an enema here. He went home and had a large bowel movement and did not have the equipment to deal with that at home. The complaint has been forwarded on to the nurse investment manager of the department. Departure - Departure Disposition: 01 Home, Self Care Clinical Impression: Dehydration Constipation Qualifiers: Constipation type: unspecified constipation type Qualified Code(s): K59.00 - Constipation, unspecified Condition: Good Instructions: ED Constipation, ED Dehydration Follow-Up: Kush Martinez MD [Primary Care Provider] - Prescriptions: Polyethylene Glycol 3350 [Miralax] 17 gm PO DAILY PRN #1 bottle PRN Reason: Constipation Comments: Be sure to drink plenty of water. Start taking the MiraLAX to see if that will help you move your bowels. Follow-up with your primary care provider if you continue to have abdominal discomfort and difficulty urinating. Return if you develop fever, increasing abdominal pain, vomiting or other problems arise. Discharge Date/Time: 07/13/19 11:02
[2019-07-13 08:34] LABS: BILIRUBIN,URINE NEGATIVE (NEGATIVE); GLUCOSE, URINE (UA) NEGATIVE (NEGATIVE); KETONES,URINE (UA) NEGATIVE (NEGATIVE); LEUKOCYTE ESTERASE, URINE NEGATIVE (NEGATIVE); NITRITE,URINE NEGATIVE (NEGATIVE); OCCULT BLOOD,URINE MODERATE (NEGATIVE); PH,URINE 5.5 PH (5.0-7.5); PROTEIN,URINE NEGATIVE (NEGATIVE); UROBILINOGEN,URINE 0.2 (NORMAL) E.U./dL (NORMAL)
[2019-07-13 08:35] LABS: CLARITY,URINE CLEAR (CLEAR)
[2019-07-13 08:49] LABS: BACTERIA,URINE Rare /HPF (None Seen); RBC,URINE 0-5 /HPF (0-5); SQUAMOUS EPITHELIAL CELL,UR RARE Squamous (<= Few)
[2019-07-13] MEDS ORDERED: SODIUM CHLORIDE 0.9% 1,000 ML IV ONE (08:58)
[2019-07-13 09:16] LABS: BASOPHILS % (AUTO) 0.2 %; EOSINOPHILS # (AUTO) 0.1 10^3/uL (0.0-0.7); EOSINOPHILS % (AUTO) 0.8 %; HGB - HEMOGLOBIN 13.5 g/dL (14.0-18.0); LYMPHOCYTES # (AUTO) 0.5 10^3/uL (1.5-3.5); LYMPHOCYTES % (AUTO) 6.8 %; MEAN CORPUSCULAR HEMOGLOBIN 31.1 pg (27.0-31.0); MEAN CORPUSCULAR HGB CONC 32.1 g/dL (32.0-36.0); MEAN CORPUSCULAR VOLUME 96.8 fL (80.0-94.0); MONOCYTES # (AUTO) 0.7 10^3/uL (0.0-1.0); NEUTROPHILS # (AUTO) 5.4 10^3/uL (1.5-6.6); NEUTROPHILS % (AUTO) 80.7 %; PLT - PLATELET COUNT 217 10^3/uL (130-450); RED BLOOD COUNT 4.34 10^6/uL (4.70-6.10); RED CELL DISTRIBUTION WIDTH 14.3 % (12.0-15.0); WHITE BLOOD COUNT 6.6 x10^3/uL (4.8-10.8)
[2019-07-13 09:24] LABS: CALCIUM 9.5 mg/dL (8.5-10.3); CREATININE 0.9 mg/dL (0.6-1.2)
--- NOTE | 2019-07-13 09:50 | XRAY Report ---
Reason: constipation Procedure Date: 07/13/2019 Accession Number: [id number] / [id number] Procedure: XR - Abdomen 1 View X-Ray CPT Code: 72006 Final Report FULL RESULT: EXAM: ABDOMEN RADIOGRAPHY EXAM DATE: 07/13/2019 09:32 AM. CLINICAL HISTORY: Constipation. COMPARISON: 02/06/2012 9:26 AM. TECHNIQUE: 1 view. FINDINGS: Bowel Gas Pattern: There is mild fecal loading. The bowel gas pattern is nonspecific. Other: There is severe degenerative change of the lumbar spine and right hip. The left hip prosthesis is noted. IMPRESSION: Mild fecal loading. RADIA
[2019-07-13 10:45] VITALS: BP 144/90
== END 2019-07-13 11:02 | disposition home or self-care (01) ==
LOC: ED 07:45
DX: K59.00 Constipation, unspecified (principal); E86.0 Dehydration; I10 Essential (primary) hypertension; I48.91 Unspecified atrial fibrillation; Z79.01 Long term (current) use of anticoagulants; Z87.891 Personal history of nicotine dependence
CPT/HCPCS: 36415; 51701; 51798; 74018; 80048; 81001; 81003; 85025; 87086; 96360; 99283

== ENCOUNTER 2020-05-01 06:45 | Emergency (ER) | payer MEDICARE, OTHER ==
--- NOTE | 2020-05-01 07:13 | ED Physician Documentation ---
PD HPI Fall - Stated complaint Stated Complaint: GLF - Chief complaint Chief Complaint: Trauma Hd/Nk - History obtained from History obtained from: Patient, Family - History of Present Illness Mechanism of injury: Lost balance Fall distance: Standing position Where injury occurred: Home Timing - onset: Today (this morning) Injury(ies) location: Face (right earlobe with laceration as he fell.), Left Lower Extremity (struck anterior left knee. Pain and tenderness anterior part of it.). No: Head, Chest, Abdomen Associated symptoms: No: LOC, AMS, Nasal drainage, Neck pain, Weakness, Paresthesias Worsens with: Palpation Contributing factors: Anticoagulated. No: Intoxicated Similar symptoms before: No diagnosis Recently seen: Not recently seen Review of Systems Constitutional: denies: Fever, Myalgias Nose: denies: Rhinorrhea / runny nose, Congestion Throat: denies: Sore throat Cardiac: denies: Chest pain / pressure Respiratory: denies: Cough GI: denies: Abdominal Pain, Nausea, Vomiting, Diarrhea Neurologic: denies: Focal weakness, Numbness, Altered mental status, Headache PD PAST MEDICAL HISTORY - Past Medical History Cardiovascular: Hypertension, High cholesterol, Atrial fibrillation Respiratory: None Endocrine/Autoimmune: None GI: GERD, Colon polyps : Benign prostate hypertrophy HEENT: Chronic hearing loss Psych: Depression Musculoskeletal: Osteoarthritis, Chronic back pain, Other Derm: None - Past Surgical History Past Surgical History: Yes General: Colonoscopy Ortho: Hip replacement, Arthroscopic surgery HEENT: Tonsil/Adenoidectomy - Present Medications Home Medications: Ambulatory Orders Medication Instructions Recorded Confirmed Simvastatin 20 mg PO QPM 03/10/15 05/01/20 Finasteride 1 tab ORAL DAILY 09/15/18 05/01/20 Tamsulosin HCl [Flomax] 1 cap ORAL DAILY 09/15/18 05/01/20 Apixaban [Eliquis] 5 mg PO BID 07/13/19 05/01/20 Cholecalciferol [Vitamin D3] 0 cap PO DAILY 07/13/19 07/13/19 Docusate Sodium 250Mg Capsule 250 mg PO ONCE 07/13/19 07/13/19 [Colace 250Mg Capsule] Polyethylene Glycol 3350 [Miralax] 17 gm PO DAILY PRN #1 bottle 07/13/19 05/01/20 Vitamin B Complex 1 each PO DAILY 07/13/19 05/01/20 - Allergies Allergies/Adverse Reactions: Allergies Allergy/AdvReac Type Severity Reaction Status Date / Time cefuroxime axetil * Allergy Severe Hives Verified 05/01/20 06:59 [From Ceftin] acetaminophen [From Vicodin] Allergy Rash Verified 05/01/20 06:59 hydrocodone [From Vicodin] Allergy Rash Verified 05/01/20 06:59 - Social History Does the pt smoke?: No Smoking Status: Never smoker Does the pt drink ETOH?: Yes ETOH Use: Wine Does the pt have substance abuse?: No - Immunizations Immunizations are current?: Yes - POLST Patient has POLST: Yes PD ED PE NORMAL - Vitals Vital signs reviewed: Yes - General General: Alert and oriented X 3, No acute distress, Well developed/nourished - HEENT HEENT: Other (right earlobe with small 1 cm lac outer helix not affecting cartilage. It does affect the contour of the ear mildly.) - Neck Neck: Supple, no meningeal sign, No bony TTP - Cardiac Cardiac: No murmur - Respiratory Respiratory: Clear bilaterally - Abdomen Abdomen: Soft, Non tender - Derm Derm: Normal color, Warm and dry - Extremities Extremities: Other (left knee anteriorly with tednerness but no deformity. No effusion. Old scar noted. ) - Neuro Neuro: Alert and oriented X 3, No motor deficit, Normal speech Eye Opening: Spontaneous Motor: Obeys Commands Verbal: Oriented GCS Score: 15 Results - Vitals Vitals: Vital Signs - 24 hr 05/01/20 05/01/20 06:54 08:31 Temperature 36.4 C L 36.3 C L Heart Rate 67 70 Respiratory 18 16 Rate Blood Pressure 194/104 H 161/105 H O2 Saturation 98 98 Oxygen O2 Source Room air - Rads (name of study) head CT Radiology: Prelim report reviewed (no ICH), See rad report eft knee Radiology: Prelim report reviewed (no fractures; s/p knee replacement), See rad report Procedures - Laceration (location) right earlobe Length in cm: 1 Wound type: Linear, Clean. No: Into muscle Neurovascular status: Sensory intact Anesthesia: Lidocaine 2% Wound Preparation: Irrigated copiously NS, Wound explored. No: FB identified Skin layer closure: Nylon, Running, Size #-0 - enter number (6) Other: Patient tolerated well, No complications, Dressing applied, Tetanus UTD Complexity: Simple PD MEDICAL DECISION MAKING - ED course Complexity details: reviewed results, considered differential, d/w patient Departure - Departure Disposition: 01 Home, Self Care Clinical Impression: Anticoagulant long-term use Ear lobe laceration Qualifiers: Encounter type: initial encounter Laterality: right Qualified Code(s): S01.311A - Laceration without foreign body of right ear, initial encounter Accidental fall Qualifiers: Encounter type: initial encounter Qualified Code(s): W19.XXXA - Unspecified fall, initial encounter Knee contusion Qualifiers: Encounter type: initial encounter Laterality: left Qualified Code(s): S80.02XA - Contusion of left knee, initial encounter Condition: Stable Record reviewed to determine appropriate education?: Yes Instructions: ED Laceration Facial Sutr Tape Follow-Up: Kush Martinez MD [Primary Care Provider] - Comments: No bleeding is seen on your CT scan. Your knee x-ray appears normal as well. Your knee can still hurt with use from the fall on it. Use Tylenol if needed for pains every 4-6 hours. Continue your usual medications otherwise. My suture care instructions it is okay to wash and shower. Clean off the wound twice a day with soap and water, or peroxide and water. Apply some antibiotic ointment to it to keep it moist. Also to watch for signs of infection such as purulence, redness or increasing pain. Return to your primary care or the ER at the specified time for suture removal. Your suture removal 7 or 8 days. Discharge Date/Time: 05/01/20 08:47
[2020-05-01] MEDS ORDERED: ACETAMINOPHEN 325 MG TABLET PO STA (07:24)
--- NOTE | 2020-05-01 08:14 | CT Report ---
PROCEDURE: HEAD WO INDICATIONS: fall with struck head; on Eliquis TECHNIQUE: Noncontrast 4.5 mm thick angled axial sections acquired from the foramen magnum to the vertex. For r adiation dose reduction, the following was used: automated exposure control, adjustment of mA and/or kV according to patient size. COMPARISON: None. FINDINGS: Image quality: Diagnostic. CSF spaces: Basal cisterns are patent. No extra-axial fluid collections. Ventricles are normal in size and shape, with the left lateral ventricle slightly larger than the right Brain: No midline shift. No intracranial masses or hemorrhage. Chance-white matter interface is norm al. Brain parenchymal volume loss is seen. Chronic small vessel ischemic change is seen. Skull and face: Calvarium and visualized facial bones are intact, without suspicious lesions. Sinuses: Visualized sinuses and mastoids are clear. IMPRESSION: No intracranial hemorrhage is seen. No significant intracranial abnormality is seen. Age-appropriate brain parenchymal volume loss and chronic small vessel ischemic change can be seen. Reviewed by: Louis Ken MD on 05/01/2020 7:13 AM [facility] Approved by: Louis Ken MD on 05/01/2020 7:13 AM [facility] Station ID: [id number]
--- NOTE | 2020-05-01 08:15 | XRAY Report ---
PROCEDURE: Knee 3 View LT INDICATIONS: fall onto left knee TECHNIQUE: 3 views of the left knee(s) were acquired. COMPARISON: 09/15/2018 FINDINGS: Bones: No fractures or dislocations. No suspicious bony lesions. Left knee arthroplasty hardware is seen. No findings of hardware failure or hardware loosening can be seen. Soft tissues: No joint effusion. No suspicious soft tissue calcifications. Atherosclerotic calcifi cation is seen. IMPRESSION: No acute plain film abnormality is seen. Status post knee arthroplasty. Reviewed by: Louis Ken MD on 05/01/2020 7:14 AM [facility] Approved by: Louis Ken MD on 05/01/2020 7:14 AM [facility] Station ID: [id number]
[2020-05-01 08:35] VITALS: BP 161/105
== END 2020-05-01 08:47 | disposition home or self-care (01) ==
LOC: ED 06:45
DX: S01.311A Laceration without foreign body of right ear, initial encounter (principal); S80.02XA Contusion of left knee, initial encounter; W01.190A Fall on same level from slipping, tripping and stumbling with subsequent striking against furniture, initial encounter; Y92.009 Unspecified place in unspecified non-institutional (private) residence as the place of occurrence of the external cause; I10 Essential (primary) hypertension; I48.91 Unspecified atrial fibrillation; Z79.01 Long term (current) use of anticoagulants
CPT/HCPCS: 12011; 70450; 73562; 99284; A9270

== ENCOUNTER 2020-05-15 14:23 | Emergency (ER) | payer MEDICARE, OTHER ==
[2020-05-15 14:31] VITALS: BP 138/78
--- NOTE | 2020-05-15 14:35 | ED Physician Documentation ---
PD HPI WOUND RECHECK - Stated complaint Stated Complaint: STITCH REMOVAL - Chief complaint Chief Complaint: Laceration - Histroy obtained from History obtained from: Patient - Additional information Additional information: Suture removal, right ear, its been 12 days, he has no complaints. Review of Systems Constitutional: reports: Reviewed and negative Eyes: reports: Reviewed and negative Ears: reports: Reviewed and negative PD PAST MEDICAL HISTORY - Past Medical History Past Medical History: Yes Cardiovascular: Hypertension, High cholesterol, Atrial fibrillation Respiratory: None Endocrine/Autoimmune: None GI: GERD, Colon polyps : Benign prostate hypertrophy HEENT: Chronic hearing loss Psych: Depression Musculoskeletal: Osteoarthritis, Chronic back pain, Other Derm: None - Past Surgical History Past Surgical History: Yes General: Colonoscopy Ortho: Hip replacement, Arthroscopic surgery HEENT: Tonsil/Adenoidectomy - Present Medications Home Medications: Ambulatory Orders Medication Instructions Recorded Confirmed Simvastatin 20 mg PO QPM 03/10/15 05/01/20 Finasteride 1 tab ORAL DAILY 09/15/18 05/01/20 Tamsulosin HCl [Flomax] 1 cap ORAL DAILY 09/15/18 05/01/20 Apixaban [Eliquis] 5 mg PO BID 07/13/19 05/01/20 Cholecalciferol [Vitamin D3] 0 cap PO DAILY 07/13/19 07/13/19 Docusate Sodium 250Mg Capsule 250 mg PO ONCE 07/13/19 07/13/19 [Colace 250Mg Capsule] Vitamin B Complex 1 each PO DAILY 07/13/19 05/01/20 polyethylene glycoL 3350 [Miralax] 17 gm PO DAILY PRN #1 bottle 07/13/19 05/01/20 - Allergies Allergies/Adverse Reactions: Allergies Allergy/AdvReac Type Severity Reaction Status Date / Time cefuroxime axetil * Allergy Severe Hives Verified 05/01/20 06:59 [From Ceftin] acetaminophen [From Vicodin] Allergy Rash Verified 05/01/20 06:59 hydrocodone [From Vicodin] Allergy Rash Verified 05/01/20 06:59 - Social History Does the pt smoke?: No Smoking Status: Never smoker Does the pt drink ETOH?: Yes Does the pt have substance abuse?: No - Immunizations Immunizations are current?: Yes - POLST Patient has POLST: Yes PD ED PE NORMAL - Vitals Vital signs reviewed: Yes - General General: Alert and oriented X 3, No acute distress - HEENT HEENT: Other (Healing running suture in the right earlobe without signs of infection or dehiscence. Sutures removed during examination without issue.) - Neuro Neuro: Alert and oriented X 3, Normal speech Results - Vitals Vitals: Vital Signs - 24 hr 05/15/20 14:28 Temperature 37 C Heart Rate 81 Respiratory 18 Rate Blood Pressure 138/78 H O2 Saturation 98 Oxygen O2 Source Room air Departure - Departure Disposition: Home, Self Care Clinical Impression: Visit for suture removal Condition: Good Record reviewed to determine appropriate education?: Yes Instructions: ED Wound Check Sutr Remove No Infec
== END 2020-05-15 14:36 | disposition home or self-care (01) ==
LOC: ED 14:23
DX: S01.311D Laceration without foreign body of right ear, subsequent encounter (principal); X58.XXXD Exposure to other specified factors, subsequent encounter; I10 Essential (primary) hypertension; I48.91 Unspecified atrial fibrillation; Z79.01 Long term (current) use of anticoagulants
CPT/HCPCS: 99281

== ENCOUNTER 2020-09-13 07:00 | Outpatient (CLI) | payer MEDICARE, OTHER ==
--- NOTE | 2020-09-13 14:38 | XRAY Report ---
PROCEDURE: Pelvis 3 View INDICATIONS: ACUTE LOW BACK PX TECHNIQUE: Straight AP, inlet and outlet views of the pelvis were obtained. COMPARISON: Abdomen supine view 07/13/2019. Pelvis and hip bilateral, 07/10/2019. FINDINGS: Prior left total hip arthroplasty. Hip joint osteoarthritis at the right hip is near severe with near [id number] articulation on the right. IMPRESSION: No acute trauma found. Prior left hip arthroplasty and near severe right hip degenerative hip osteoar thritis is present. Moderate degenerative disc disease at the low lumbosacral spine, partially visual ized. Reviewed by: Bebeto Raymond MD on 09/13/2020 2:37 PM PST Approved by: Bebeto Raymond MD on 09/13/2020 2:37 PM PST Station ID: [id number]
== END 2020-09-13 23:59 | disposition home or self-care (01) ==
LOC: DI.N 07:00
PROVIDERS: ATTEND Physician Assistant Medical
DX: M51.37 Other intervertebral disc degeneration, lumbosacral region (principal); M16.11 Unilateral primary osteoarthritis, right hip; Z96.642 Presence of left artificial hip joint

== ENCOUNTER 2020-11-05 03:38 | Outpatient (CLI) | payer MEDICARE, OTHER | END 2020-11-05 03:39 | disposition critical access hospital (66) | LOC: EMS 03:38 | DX: M25.552 Pain in left hip (principal); R10.9 Unspecified abdominal pain | CPT/HCPCS: A0425; A0429 ==

== ENCOUNTER 2020-11-05 03:47 | Emergency (ER) | payer MEDICARE, OTHER ==
--- NOTE | 2020-11-05 03:57 | ED Physician Documentation ---
PD HPI Fall - Stated complaint Stated Complaint: GLF/ L SIDE HIP PX - Chief complaint Chief Complaint: Trauma Ext - History obtained from History obtained from: Patient, EMS - History of Present Illness Mechanism of injury: Lost balance Fall distance: Standing position Where injury occurred: Home Timing - onset: How many hours ago (1) Pain level max: 6 (with movement) Pain level now: 3 Quality of pain: Pain, Sharp Associated symptoms: No: LOC, AMS, Neck pain, Weakness, Nausea / vomiting Symptoms improve with: Rest Worsens with: Movement, Palpation Contributing factors: Anticoagulated. No: Intoxicated Similar symptoms before: Has not had sx before Recently seen: Not recently seen - Additional information Additional information: patient is brought in by ambulance. Patient fell approximately one hour prior to arrival. Patient was standing in his bathroom, turned to quickly, lost his balance, causing him to fall to the ground. His only complaint is left posterolateral chest wall pain that is reproducible with palpation. He denies head injury, and he denies loss of consciousness. He is on Eliquis. Review of Systems Cardiac: reports: Reviewed and negative, Other (left posterolateral low chest wall chest tenderness but not chest pain per se) Respiratory: reports: Reviewed and negative GI: reports: Reviewed and negative : denies: Dysuria, Frequency, Hematuria Skin: reports: Reviewed and negative Musculoskeletal: reports: Reviewed and negative Neurologic: reports: Reviewed and negative PD PAST MEDICAL HISTORY - Past Medical History Past Medical History: Yes Cardiovascular: Hypertension, High cholesterol, Atrial fibrillation Respiratory: None Endocrine/Autoimmune: None GI: GERD, Colon polyps : Benign prostate hypertrophy HEENT: Chronic hearing loss Psych: Depression Musculoskeletal: Osteoarthritis, Chronic back pain, Other Derm: None - Past Surgical History Past Surgical History: Yes General: Colonoscopy Ortho: Hip replacement, Arthroscopic surgery HEENT: Tonsil/Adenoidectomy - Present Medications Home Medications: Ambulatory Orders Medication Instructions Recorded Confirmed Simvastatin 20 mg PO QPM 03/10/15 11/05/20 Finasteride 1 tab ORAL DAILY 09/15/18 11/05/20 Tamsulosin HCl [Flomax] 1 cap ORAL DAILY 09/15/18 11/05/20 Apixaban [Eliquis] 5 mg PO BID 07/13/19 11/05/20 Cholecalciferol [Vitamin D3] 0 cap PO DAILY 07/13/19 11/05/20 Vitamin B Complex 1 each PO DAILY 07/13/19 11/05/20 polyethylene glycoL 3350 [Miralax] 17 gm PO DAILY PRN #1 bottle 07/13/19 11/05/20 oxyCODONE [Roxicodone] 2.5 - 5 mg PO Q6H PRN #10 tablet 11/05/20 - Allergies Allergies/Adverse Reactions: Allergies Allergy/AdvReac Type Severity Reaction Status Date / Time cefuroxime axetil * Allergy Severe Hives Verified 11/05/20 03:57 [From Ceftin] acetaminophen [From Vicodin] Allergy Rash Verified 11/05/20 03:57 hydrocodone [From Vicodin] Allergy Rash Verified 11/05/20 03:57 - Social History Does the pt smoke?: No Smoking Status: Never smoker Does the pt drink ETOH?: Yes Does the pt have substance abuse?: No - Immunizations Immunizations are current?: Yes - POLST Patient has POLST: Yes PD ED PE NORMAL - Vitals Vital signs reviewed: Yes - General General: Alert and oriented X 3, No acute distress, Well developed/nourished - HEENT HEENT: Atraumatic, PERRL, EOMI - Neck Neck: Supple, no meningeal sign, No bony TTP - Respiratory Respiratory: No respiratory distress, Clear bilaterally - Abdomen Abdomen: Normal bowel sounds, Soft, Non tender, Non distended - Back Back: No CVA TTP, No spinal TTP - Derm Derm: Normal color, Warm and dry - Extremities Extremities: No deformity, No tenderness to palpate, Normal ROM s pain, No edema - Neuro Neuro: Alert and oriented X 3, 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 no obvious deformity, no bruising. PD ED PE EXPANDED - Cardiac Cardiac: Abnormal Rhythm, Murmur Present Results - Vitals Vitals: Vital Signs - 24 hr 11/05/20 11/05/20 11/05/20 03:48 03:52 05:52 Temperature 36.1 C L 36.1 C L Heart Rate 83 83 68 Respiratory 18 18 18 Rate Blood Pressure 178/105 H 178/105 H 188/124 H O2 Saturation 99 99 98 11/05/20 06:44 Temperature Heart Rate 61 Respiratory 16 Rate Blood Pressure 148/106 H O2 Saturation 98 Oxygen O2 Source Room air - Rads (name of study) chest xray with left ribs Radiology: Prelim report reviewed, See rad report PD MEDICAL DECISION MAKING - ED course Complexity details: reviewed results, re-evaluated patient, considered differential, d/w patient ED course: NAD on H+P except with palpation left posterolateral chest wall. no abdominal tenderness, AAOx3, denies headache, no neurological c/o nor findings on exam. he has FROM in BLE including at hips with no hip tenderness to palpation. cxr reveals solitary, nondisplaced left 12th rib fracture. given tylenol in ED, discharged with instruction to return if worse, to take acetaminophen for pain, but also given low-dose oxycodone rx to take if tylenol does not adequately control his pain. Departure - Departure Disposition: 01 Home, Self Care Clinical Impression: Rib fracture Qualifiers: Encounter type: initial encounter Rib fracture type: single rib Fracture type: closed Laterality: left Qualified Code(s): S22.32XA - Fracture of one rib, left side, initial encounter for closed fracture Condition: Good Instructions: ED Fx Rib Prescriptions: oxyCODONE [Roxicodone] 2.5 - 5 mg PO Q6H PRN #10 tablet PRN Reason: Pain Comments: Take tylenol (acetaminophen) according to the label instructions as needed for pain. If you do not have adequate relief of your pain within one hour of taking acetaminophen (tylenol), you can then take the prescribed oxycodone (1/2 - 1 tablet by mouth every 6 hours as needed for pain that is not relieved with tylenol). Follow up with your primary care provider; call Saturday to arrange for next available appointment for reevaluation of the injury Discharge Date/Time: 11/05/20 07:20
[2020-11-05] MEDS ORDERED: ACETAMINOPHEN 325 MG TABLET PO STA (05:35)
[2020-11-05 06:45] VITALS: BP 148/106
--- NOTE | 2020-11-05 10:28 | XRAY Report ---
PROCEDURE: Ribs w/PA Chest LT INDICATIONS: fall, left posterolateral chest wall pain TECHNIQUE: 3 views of the left ribs were acquired, along with a single view chest. COMPARISON: 07/10/2019. Correlation is also made with prior chest CT 08/24/2017. FINDINGS: Surgical changes and devices: None. Bones and chest wall: A nondisplaced 12th rib fracture can be seen. No fractures or dislocations are seen elsewhere. Age-appropriate degenerative changes are seen. No suspicious bony lesions. The ov erlying soft tissues appear unremarkable. Lungs and pleura: No pleural effusions or pneumothorax. Lungs appear clear. Mediastinum: The aorta is prominent and tortuous. The cardiac contours are at the upper limits of no rmal. IMPRESSION: There is a nondisplaced 12th rib fracture faintly seen. No pneumothorax. Tortuous, calcified aorta. Heart size at the upper limits of normal. Note: No significant discrepancy from the preliminary report. Reviewed by: Louis Ken MD on 11/05/2020 9:27 AM PANCHITO Approved by: Louis Ken MD on 11/05/2020 9:27 AM PANCHITO Station ID: [id number]
== END 2020-11-05 07:20 | disposition home or self-care (01) ==
LOC: EDUNIT# → ED 03:47
DX: S22.32XA Fracture of one rib, left side, initial encounter for closed fracture (principal); W01.0XXA Fall on same level from slipping, tripping and stumbling without subsequent striking against object, initial encounter; Y92.002 Bathroom of unspecified non-institutional (private) residence as the place of occurrence of the external cause; I48.91 Unspecified atrial fibrillation; Z79.01 Long term (current) use of anticoagulants; I10 Essential (primary) hypertension
CPT/HCPCS: 71101; 99283; 99284; A9270